=== PATIENT | male | born 1995 | race Caucasian/White ===

== ENCOUNTER 2019-09-14 02:31 | Emergency (ER) | payer BC ==
[2019-09-14] MEDS ORDERED: Haloperidol Lactate 5 MG/ML VIAL ONE (02:45)
[2019-09-14] MEDS ORDERED: diphenhydrAMINE 50 MG/ML VIAL ONE (03:35)
[2019-09-14] MEDS ORDERED: Metoclopramide HCl 10 MG/2 ML VIAL ONE (03:35)
== END 2019-09-14 04:59 | disposition home or self-care (01) ==
LOC: ERS 02:31
DX: F12.90 Cannabis use, unspecified, uncomplicated (principal); R11.2 Nausea with vomiting, unspecified; R10.9 Unspecified abdominal pain
CPT/HCPCS: 96365; 96372; 96375; J1200; J1630; J2765